=== PATIENT | female | born 1980 | race Two or more races ===

== ENCOUNTER 2023-10-13 09:50 | Emergency (ER) | payer MEDICAID, OTHER ==
[~2023-10-13] VITALS: Ht 157.5 cm; Wt 103.3 kg
[2023-10-13 10:01] VITALS: BP 141/73; PULSE 67; RESP 16; O2SAT 100
[2023-10-13 10:37] LABS: Urine Bacteria None Seen /hpf (None Seen)
[2023-10-13 10:47] LABS: Basophils # (auto) 0.1 10 ^3/uL (0-0.2); Basophils % (auto) 0.9 % (0.0-2.0); Eosinophils # (auto) 0.2 10 ^3/uL (0-0.8); Hematocrit 37.8 % (36.0-46.0); Hemoglobin 12.4 g/dL (12.2-16.2); Lymphocytes # (auto) 3.1 10 ^3/uL (0.4-5.4); Lymphocytes % (auto) 37.5 % (10.0-50.0); Mean Corpuscular Hemoglobin 32.3 pg (28.0-32.0); Mean Corpuscular Hgb Conc. 32.8 g/dL (32.0-36.0); Mean Corpuscular Volume 98.6 fL (80.0-100.0); Monocytes # (auto) 0.5 10 ^3/uL (0-1.3); Monocytes % (auto) 6.2 % (0.0-12.0); Neutrophils # (auto) 4.4 10 ^3/uL (1.6-8.6); Neutrophils % (auto) 52.4 % (37.0-80.0); Red Blood Cells 3.83 10^6/uL (4.0-5.20); Red Cell Distribution Width 12.7 % (11.8-14.3); White Blood Cell 8.4 10^3/uL (4.4-10.8)
[2023-10-13 10:53] LABS: Urine Blood Negative /uL (Negative); Urine Clarity Clear (Clear); Urine Color Light-Yellow (Yellow); Urine Protein, UAD Negative (Negative); Urine Specific Gravity 1.023 (1.001-1.035); Urine Urobilinogen Normal (Negative); Urine WBC <1 /hpf (0 - 5)
[2023-10-13 11:21] LABS: Chloride 108 mmol/L (98-107); Potassium 4.3 mmol/L (3.5-5.1); Sodium 138 mmol/L (136-145)
[2023-10-13 11:22] LABS: Anion Gap 9 (5-15); Calcium 9.2 mg/dL (8.5-10.1); Carbon Dioxide 21 mmol/L (20-30)
[2023-10-13 11:27] LABS: BUN/Creatinine Ratio 10.8 (10.0-20.0); Blood Urea Nitrogen 9 mg/dL (9-23); Glucose 115 mg/dL (74-106)
[2023-10-13] MEDS ORDERED: KETOROLAC TROMETH 60MG/2ML VIAL IM ONE (11:45)
== END 2023-10-13 11:45 | disposition left against medical advice (07) ==
LOC: ER 09:50
DX: R10.9 Unspecified abdominal pain (principal)
CPT/HCPCS: 36415; 80048; 81001; 85025